=== PATIENT | female | born 1960 | race African-American/Black ===

== ENCOUNTER → 2019-01-13 14:29 | Outpatient (CLI) | payer OTHER ==
[2019-01-13 15:01] LABS: BASOPHILS 0.1 % (0-2); EOSINOPHILS 2.2 % (0-7); HEMATOCRIT 34.5 % (36.0-48.0); HEMOGLOBIN 11.3 g/dL (12-16); IMMATURE GRANULOCYTES 0.1 % (0-5); LYMPHOCYTES 43.6 % (15-50); MCHC 32.8 g/dL (31.0-37.0); MCV 82.3 fL (80.0-100.0); MEAN PLATELET VOLUME 8.7 fL (7.4-10.4); MONOCYTES 6.9 % (2-11); NEUTROPHILS 47.1 % (40-80); PLATELET COUNT 281 10x3/uL (130-400); RBC 4.19 10x6/uL (4.00-5.40); RDW 13.9 % (11.5-14.5); WBC 7.8 10x3/uL (4.8-10.8)
[2019-01-13 15:36] LABS: ALBUMIN 3.4 g/dL (3.4-5.0); ALKALINE PHOSPHATASE 101 U/L (46-116); ALT (SGPT) 18 U/L (10-68); CALC OSMOLALITY 274 mosm/kg (275-300); CALCIUM 8.9 mg/dL (8.5-10.1); CARBON DIOXIDE 28.9 mmol/L (21.0-32.0); CHLORIDE - SERUM 101 mmol/L (98-107); CREATININE - SERUM 0.8 mg/dL (0.6-1.3); GLUCOSE 85 mg/dL (74-106); POTASSIUM - SERUM 3.2 mmol/L (3.5-5.1); PROTEIN - SERUM 8.1 g/dL (6.4-8.2); SODIUM 138 mmol/L (136-145); UREA NITROGEN 12 mg/dL (7-18); eGFR NON AFRICAN AMERICAN 77 mL/min (90-120)
[2019-01-16 09:09] LABS: HCVGENO - HEP C QUANT HCV Not Detected IU/mL (())
== END | disposition home or self-care (01) ==
LOC: D.LAB 14:29
PROVIDERS: ATTEND Internal Medicine Gastroenterology
DX: B18.2 Chronic viral hepatitis C (principal)